=== PATIENT | male | born 1960 | race Caucasian/White ===

== ENCOUNTER → 2022-09-15 10:15 | Outpatient (CLI) | payer BC, SELFPAY ==
--- NOTE | 2022-09-15 10:18 | DI.RAD.S_ITS ---
PROCEDURE: XR ANKLE RT MIN 3V INDICATIONS: right ankle pain TECHNIQUE: 3 views of the ankle were acquired. COMPARISON: None. FINDINGS: Bones: No fractures or dislocations. Ankle mortise is normally aligned. No suspicious bony lesions. The talar dome demonstrates no carloz abnormality. Age-appropriate bony degenerative changes are seen. Soft tissues: Mild soft tissue swelling is seen, primarily medially. IMPRESSION: Mild soft tissue swelling seen medially. No focal bony abnormality is seen. Dictated by: Gibran Darby M.D. on 09/15/2022 at 9:56 Approved by: Gibran Darby M.D. on 09/15/2022 at 9:57
== END ==
PROVIDERS: Referring Provider Physician Assistant; Visit Provider Physician Assistant
DX: M25.571 Pain in right ankle and joints of right foot (principal); M79.89 Other specified soft tissue disorders
CPT/HCPCS: 73610